=== PATIENT | female | born 1950 | race Caucasian/White ===

== ENCOUNTER → 2018-10-10 | Outpatient (CLI) | payer MEDICARE, OTHER ==
--- NOTE | 2018-10-10 17:00 | CONS ---
CONSULTATION DATE OF SERVICE: 10/10/2018 67-year-old lady has been [facility] for obstructive sleep apnea- hypopnea syndrome. HISTORY OF PRESENT ILLNESS/SLEEP WAKE EVALUATION: Patient has been diagnosed with obstructive sleep apnea in 1997 in another institution. Since that time, she is on treatment with CPAP. SLEEP SCHEDULE: Sleep schedule from 8 - 9 p.m. until 5 a.m. FALLING ASLEEP: She does have problem with falling asleep, has TV set in the bedroom. DURING SLEEP: Usually sleeps on the side position. According to her son, she snores while she is using her CPAP machine. She also had an episode when lamp was on the floor in the morning and other changes in the furniture in bed and patient did not remember what happened with her. She continued to snore while using CPAP. She wakes up from sleep 4 times with 4 episodes of nocturia. No history of hypnagogic hallucinations, sleep paralysis or cataplexy. Positive history of kicking at night. DURING THE DAY/SLEEP WAKE EVALUATION: The patient feels sleepy during the day. [place] Sleepiness Scale significantly increased to 18. Usually she does not feel refreshed after the naps. PAST MEDICAL HISTORY: Positive for hypertension, rheumatoid arthritis, fibromyalgia, hiatal hernia. history of swelling of the left leg and hypothyroidism. PAST SURGICAL HISTORY: , bilateral cataract surgery also done. MEDICATIONS: Metformin, Cymbalta, Flexeril, hydrochlorothiazide, levothyroxine, losartan, Norvasc, oxybutynin, Pravastatin, Mobic, methotrexate, clonazepam, occasional Ventolin inhaler. ALLERGIES: ALLERGY TO CATS, AMPICILLIN, LISINOPRIL. SOCIAL HISTORY: Positive for smoking 1 pack a day for 15 years. Quit about 20 years ago. Alcohol consumption none. FAMILY HISTORY: Hypertension, arthritis, sinus problems, lung problems, T-cell lymphoma by her father, bipolar in her cousin and non-Hodgkin's lymphoma by her aunt. REVIEW OF SYSTEMS: Multiple awakenings from sleep, sleepiness during the day. PHYSICAL EXAM: lady without distress. BP 171/79, HR 84, RR 16, height 4 feet 10 inches, weight 227 pounds. Body mass index 47.6, temperature 98.0, oxygen saturation at room air 95%. HEENT: Oropharynx extremely low position of soft palate. Mallampati 4. Slight restriction of nasal breathing. Wide neck, 20 inches in circumference. NECK: Supple, no JVD. Thyroid is not palpable. LUNGS Clear to percussion and to auscultation. Good air exchange. No wheezing or rhonchi. HEART: S1, S2 with a few extrasystoles. regular. No murmurs, gallops, or rubs. ABDOMEN: Obese. Soft and nontender. Bowel sounds are present. No organomegaly appreciated. EXTREMITIES: 1+ left leg edema. No edema on the right leg. [employer] Awake, alert, and oriented X3. Cranial nerves 2 to 7 intact. There is no fasciculation or atrophy. noted. No focal deficits observed. IMPRESSION: 1. Snoring, multiple awakenings from sleep, extremely low position of soft palate, wide neck, significant excessive daytime sleepiness, history of obstructive sleep apnea-hypopnea syndrome; obstructive sleep apnea-hypopnea syndrome. 2. Obesity. 3. Rheumatoid arthritis. 4. History of fibromyalgia. 5. Hypertension. 6. Hypothyroidism. 7. History of cataracts status post bilateral cataract surgery. 8. Slight swelling of left foot. PLAN: 1. Polysomnography for evaluation of patient breathing during the sleep. Previous sleep study done more than 12 years ago also to check for possible parasomnia. Patient has kicking at night and possibly out of dream movements. 2. CPAP titration for correction of respiratory abnormalities during the sleep. 3. Losing weight. 4. Sleep hygiene with regular time in bed for at least 8 hours. 5. No driving if feeling sleepiness. Thank you very much for referring this patient for consultation. Sincerely, Philipp Pozo MD, PhD, FAASM Diplomat of [employer] Sales Project Coordinator of [facility] [place] MMODL / IJN: [id number] /
== END ==
LOC: SLEEP 13:19
PROVIDERS: ATTEND Internal Medicine
DX: G47.33 Obstructive sleep apnea (adult) (pediatric) (principal); R35.1 Nocturia; E66.9 Obesity, unspecified; M06.9 Rheumatoid arthritis, unspecified; M79.7 Fibromyalgia; I10 Essential (primary) hypertension; M79.89 Other specified soft tissue disorders; E03.9 Hypothyroidism, unspecified; K44.9 Diaphragmatic hernia without obstruction or gangrene; Z98.42 Cataract extraction status, left eye; Z98.41 Cataract extraction status, right eye; Z99.89 Dependence on other enabling machines and devices; Z79.84 Long term (current) use of oral hypoglycemic drugs; Z79.899 Other long term (current) drug therapy; Z79.1 Long term (current) use of non-steroidal anti-inflammatories (NSAID); Z91.048 Other nonmedicinal substance allergy status; Z88.0 Allergy status to penicillin; Z88.8 Allergy status to other drugs, medicaments and biological substances; Z87.891 Personal history of nicotine dependence; Z68.42 Body mass index [BMI] 45.0-49.9, adult
CPT/HCPCS: 99211

== ENCOUNTER → 2019-02-20 | Outpatient (CLI) | payer MEDICARE, OTHER ==
--- NOTE | 2019-02-20 18:08 | PN ---
PROGRESS NOTE DATE OF SERVICE: 02/20/2019 This patient is a 68-year-old lady who has been followed in the sleep center. She comes in for followup of treatment for obstructive sleep apnea-hypopnea syndrome. Recently the patient a polysomnogram which showed extremely severe obstructive sleep apnea. I discussed results of the sleep study with the patient in detail. Then she had CPAP titration and was started on treatment with CPAP. Today is her first visit after she received her new CPAP unit. She feels better with the machine, but she feels that possibly the pressure is not enough for her. She had episodes of sleepwalking while she was on treatment with CPAP. [place] Sleepiness Scale today is 9. I checked her CPAP unit. CPAP pressure is 10 cm of water. Usage is every night and / nights for more than 4 hours, with average usage 9.8 hours per night. Leak 16 L/minute, which is acceptable, especially because the patient is using a full-face mask now. Apnea-hypopnea index for the last month is 6.04, for the last night 10.0. No central apneas. MEDICATIONS: 1. Metformin. 2. Cymbalta. 3. Flexeril. 4. Hydrochlorothiazide. 5. Levothyroxine. 6. Losartan. 7. Norvasc. 8. Oxybutynin. 9. Pravastatin. 10.Methotrexate. 11.Ventolin. PHYSICAL EXAMINATION: GENERAL: A pleasant patient in no distress. VITAL SIGNS: BP 156/76, HR 81, RR 16, weight 226.8, temperature 97.5, oxygen saturation at room air 99%. HEENT: PERRLA, EOMI. Evaluation of oropharynx showed tongue protrudes midline. Extremely low position of soft palate. Mallampati IV. NECK: Supple. No JVD. Thyroid is not palpable. LUNGS: Clear to percussion and to auscultation. Good air exchange. No wheezing or rhonchi. HEART: S1, S2 regular. No murmurs, gallops or rubs. ABDOMEN: Obese. EXTREMITIES: No clubbing or cyanosis. [employer]ATION SECRETARY: Awake, alert, and oriented X3. Cranial nerves 2 to 7 intact. There is no fasciculation or atrophy. noted. No focal deficits observed. IMPRESSION: 1. Extremely severe obstructive sleep apnea-hypopnea syndrome; apnea-hypopnea index 114.9 with oxygen desaturation to 81.7%. The patient demonstrated great compliance with treatment, benefitting from treatment. 2. Reading from the machine showed mild abnormalities of respiration with the machine with apnea-hypopnea index in the range between 6 and 10. 3. Obesity. 4. Rheumatoid arthritis. 5. Episodes of sleepwalking recently. 6. Hypertension. 7. History of fibromyalgia. 8. Hypothyroidism. 9. Status post bilateral cataract surgery. PLAN: 1. I will increase pressure in CPAP unit to 13 cm of water. 2. Patient will continue to use CPAP equipment every night for the whole night. 3. Precautions related to possible parasomnia. Close doors, close windows. No access to any fire at night. 4. If patient continues to have any episodes of sleepwalking, we will reinitiate treatment with Klonopin. She was on treatment with this medication in the past. 5. Losing weight. 6. No driving if feeling any sleepiness. Thank you very much for allowing me to participate in the management of your patient. Sincerely, Philipp Pozo MD, PhD, FAASM Diplomat of [employer] Adult Manager of [facility] [place] MMODL / IJN: [id number] /
== END | disposition home or self-care (01) ==
LOC: SLEEP 15:35
PROVIDERS: ATTEND Internal Medicine
DX: G47.33 Obstructive sleep apnea (adult) (pediatric) (principal); M06.9 Rheumatoid arthritis, unspecified; I10 Essential (primary) hypertension; E03.9 Hypothyroidism, unspecified; F51.3 Sleepwalking [somnambulism]; Z87.39 Personal history of other diseases of the musculoskeletal system and connective tissue; Z99.89 Dependence on other enabling machines and devices; Z79.84 Long term (current) use of oral hypoglycemic drugs; Z79.899 Other long term (current) drug therapy; Z79.890 Hormone replacement therapy; Z79.891 Long term (current) use of opiate analgesic